=== PATIENT | female | born 1955 | race Caucasian/White ===

== ENCOUNTER 2018-12-13 08:16 | Day surgery (SDC) | payer BC ==
[2018-12-13] VITALS (8 sets, daily range): BP systolic 116–145; BP diastolic 66–78
[~2018-12-13] VITALS: Ht 162.6 cm; Wt 49.9 kg
--- NOTE | 2018-12-13 07:17 | Anethesia Preoperative Eval ---
Anesthesia Pre-op PMH/ROS General Date of Evaluation: Dec 13, 2018 Time of Evaluation: 07:17 Anesthesiologist: alexei ASA Score: ASA 2 Mallampati Score Class I : Soft palate, uvula, fauces, pillars visible Class II: Soft palate, uvula, fauces visible Class III: Soft palate, base of uvula visible Class IV: Only hard plate visible Mallampati Classification: Class II Surgeon: georges Diagnosis: abdominal pain, gerd Surgical Procedure: egd/colonoscopy Anesthesia History: none Social History: smoking - nonsmoker Family History: no anesthesia problems Allergies: Coded Allergies: CODEINE (Verified Adverse Reaction, Intermediate, 12/13/18) dizziness, vomiting Medications: see eMAR Patient NPO?: Yes Past Medical History Endocrine: Reports: hypothyroidism Musculoskeletal/Integumentary: Reports: other - fibromyalgia Anesthesia Pre-op Phys. Exam Physician Exam Constitutional: NAD Neurologic: CN 2-12 intact Cardiovascular: RRR Respiratory: CTA Gastrointestinal: S/NT/ND Airway Exam Mallampati Score: Class II MO: limited Neck: flexible TMD: 2fb ROM: limited Anesthesia Pre-op A/P Risk Assessment & Plan Assessment: asa2 Plan: mac Status Change Before Surgery: No Pre-Antibiotics Drug: April Funes MD Dec 13, 2018 07:17
[~2018-12-13 08:16] MED LIST: Atropine Inj 1mg/10ml Syr IV PRN; DiphenhydrAMINE 50mg/ml Inj IVP PRN; Midazolam 2mg/2ml Inj IVP PRN; fentaNYL 100 mcg/2 mL IV PRN
[2018-12-13] MEDS ORDERED: LEVOXYL100 MCG ORAL (08:45)
[2018-12-13] MEDS ORDERED: PAROXETINE HCL10 MG ORAL (08:45)
--- NOTE | 2018-12-13 09:13 | Pre-Procedure Note/Attestation ---
Pre-Procedure Note/Attestation Complete Prior to Procedure Planned Procedure: not applicable Procedure Narrative: esophagogastroduodenoscopy and colonoscopy Indications for Procedure Pre-Operative Diagnosis: screening colon, GERD Attestation I attest that I discussed the nature of the procedure; its benefits; risks and complications; and alternatives (and the risks and benefits of such alternatives ), prior to the procedure, with the patient (or the patient's legal medical center representative). I attest that, if there was a reasonable possibility of needing a blood transfusion, the patient (or the patient's legal medical center representative) was given the [facility] standardized written summary, pursuant to the Fabián Staley Blood Safety Act ([place] Health and Safety Code # 1645, as amended). I attest that I re-evaluated the patient just prior to the surgery and that there has been no change in the patient's H&P, except as documented below: Sarbjit Jc MD Dec 13, 2018 09:13
--- NOTE | 2018-12-13 09:13 | Short Stay Surgery H&P ---
History of Present Illness History of Present Illness Chief Complaint see recent office note HPI Vianey Ruiz is a 63 year old female who was admitted on for Abdominal Pain , Gerd Patient History Allergies: Coded Allergies: CODEINE (Verified Adverse Reaction, Intermediate, 12/13/18) dizziness, vomiting Medication History Scheduled Levothyroxine Sodium* (Levoxyl*), 100 MCG ORAL DAILY, (Reported) Paroxetine Hcl* (Paxil*), 10 MG ORAL DAILY, (Reported) Physical Exam Vital Signs Last Vital Signs Date Time Temp Pulse Resp B/P (MAP) Pulse Ox O2 Delivery O2 Flow Rate FiO2 12/13/18 08:48 Room Air 12/13/18 08:41 97.8 56 18 125/74 99 Plan Attestation Are the patient's medical conditions optimized for surgery? Sarbjit Jc MD Dec 13, 2018 09:13
[2018-12-13] MEDS ORDERED: Lidocaine 1% MPF 10mg/ml 5ml ONE (09:30)
[2018-12-13] MEDS ORDERED: NS Irrig 1000ml ONE (09:30)
[2018-12-13] MEDS ORDERED: Propofol 200mg/20ml IV ONE (09:30)
--- NOTE | 2018-12-13 09:38 | Short Stay Surgery H&P ---
History of Present Illness History of Present Illness Chief Complaint screening colon, GERD HPI Vianey Ruiz is a 63 year old female who was admitted on for Abdominal Pain , Gerd Patient History Allergies: Coded Allergies: CODEINE (Verified Adverse Reaction, Intermediate, 12/13/18) dizziness, vomiting PAST MEDICAL HISTORY: (1) Hypothyroid Medication History Scheduled Levothyroxine Sodium* (Levoxyl*), 100 MCG ORAL DAILY, (Reported) Paroxetine Hcl* (Paxil*), 10 MG ORAL DAILY, (Reported) Review of Systems Cardiovascular: Reports: no symptoms Respiratory: Reports: no symptoms Skeletal: Reports: no symptoms Gastrointestinal: Reports: no symptoms Genitourinary: Reports: no symptoms Neurologic: Reports: no symptoms Endocrine: Reports: no symptoms Hematologic: Reports: no symptoms Physical Exam Vital Signs Last Vital Signs Date Time Temp Pulse Resp B/P (MAP) Pulse Ox O2 Delivery O2 Flow Rate FiO2 12/13/18 08:48 Room Air 12/13/18 08:41 97.8 56 18 125/74 99 Skin: normal HENT: normal Heart: normal Lungs: normal Abdomen: normal Extremities: normal Plan Plan of Care esophagogastroduodenoscopy and colonoscopy Attestation Are the patient's medical conditions optimized for surgery? Attestation Response: yes Sarbjit Jc MD Dec 13, 2018 09:38
--- NOTE | 2018-12-13 09:52 | Endoscopy Procedure Note ---
Endoscopy Procedure Note General Indication for Procedure: screening colon, GERD Procedures Performed: EGD, colonoscopy Operative Findings/Diagnosis: gastritis, hemorrhoids Specimen: yes Pt Tolerated Procedure Well: Yes Estimated Blood Loss: none Anesthesia Anesthesiologist: alexei Anesthesia: MAC Inserted Devices Implant(s) used?: No Quality Quality of Bowel Preparation: Good Did scope reach the cecum?: Yes Was there any complications?: No GI Core Measures 50 yrs or older w/o bx or poly: No 10yrs. F/U recommended: Yes If not recommended, why?: Above average risk 18 years or older w/prev. colo: Yes <3yrs. since last colonoscopy: No Sarbjit Jc MD Dec 13, 2018 09:51
--- NOTE | 2018-12-13 10:37 | Immediate Post-Op Evaluation ---
Immediate Post-Op Evalulation Immediate Post-Op Evalulation Procedure: egd/colonoscopy/bx Date of Evaluation: Dec 13, 2018 Time of Evaluation: 10:36 IV Fluids: 600ml 0.9ns Blood Products: none Estimated Blood Loss: negligible Blood Pressure Systolic: 116 Blood Pressure Diastolic: 68 Pulse Rate: 61 Respiratory Rate: 18 O2 Sat by Pulse Oximetry: 100 Temperature (Fahrenheit): 97.4 Pain Score (1-10): 0 Nausea: No Vomiting: No Complications none Patient Status: awake, reacts, patent Hydration Status: adequate Drug: April Funes MD Dec 13, 2018 10:37
--- NOTE | 2018-12-13 10:39 | 48 Hour Post Anesthesia Eval ---
Post Anesthesia Evaluation Procedure: egd/colonoscopy/bx Date of Evaluation: Dec 13, 2018 Time of Evaluation: 10:38 Blood Pressure Systolic: 116 0: 68 Pulse Rate: 61 Respiratory Rate: 18 Temperature (Fahrenheit): 97.4 O2 Sat by Pulse Oximetry: 100 Airway: patent Nausea: No Vomiting: No Pain Intensity: 0 Hydration Status: adequate Cardiopulmonary Status: stable Mental Status/LOC: patient returned to baseline Post-Anesthesia Complications: none Follow-up care needed: N/A April Harris MD Dec 13, 2018 10:39
--- NOTE | 2018-12-13 17:30 | Procedure Note ---
DATE OF PROCEDURE: 12/13/2018 SURGEON: Sarbjit Jc M.D. PROCEDURE: Upper endoscopy with biopsy and colonoscopy. ANESTHESIA: Per Dr. Wilson. INSTRUMENT: Olympus adult flexible upper endoscope and colonoscope. INDICATION: Screening colonoscopy evaluation and chronic GERD. REASON FOR PROCEDURE: The procedure, risks, benefits, and possible consequences, including hemorrhage, aspiration, perforation and infection, and alternative treatments, were explained to the patient/legal guardian by Dr. Sarbjit Jc and the patient/legal guardian understood and accepted these risks. DESCRIPTION OF PROCEDURE: After informed consent was obtained and the patient was adequately sedated, Olympus upper endoscope was advanced from the mouth into the second portion of the duodenum and retroflexion was performed in the stomach. The patient had evidence of diffuse atrophic gastritis. Random biopsy from antrum was obtained to rule out H. pylori infection. At this time, the upper endoscope was retrieved and the patient was turned over for colonoscopy. First rectal exam was performed, which was normal. Then, the scope was advanced from the rectum into the cecum documented by appendiceal orifice, ileocecal valve, and right upper quadrant palpation. Quality of prep was very good. The patient normal colonoscopy examination. No obvious mass, polyp or any pathology was seen. Retroflexion of rectum showed evidence of small internal hemorrhoids. SUMMARY OF FINDINGS: 1. Gastritis, status post biopsy. 2. Internal hemorrhoids, otherwise normal colonoscopy examination. RECOMMENDATIONS: Follow up pathology and treat accordingly. Sarbjit Jc M.D. DR: Mague JOB#: [id number] CC:
--- NOTE | 2018-12-17 13:59 | Cardiology Report ---
APPROVED REPORT EKG Measurement Heart [id number] Sinus bradycardia with premature supraventricular complexes Otherwise normal ECG
== END 2018-12-13 11:25 | disposition home or self-care (01) ==
LOC: GAS 08:16
DX: Z12.11 Encounter for screening for malignant neoplasm of colon (principal); K21.9 Gastro-esophageal reflux disease without esophagitis; K29.50 Unspecified chronic gastritis without bleeding; K64.8 Other hemorrhoids; E03.9 Hypothyroidism, unspecified; Z79.899 Other long term (current) drug therapy; Z88.6 Allergy status to analgesic agent; M79.7 Fibromyalgia
CPT/HCPCS: 43239; 45378; 93005; J2704; 94003; 94150